=== PATIENT | male | born 1965 | race Two or more races ===

== ENCOUNTER 2022-05-13 17:56 | Emergency (ER) | payer SELFPAY ==
[~2022-05-13] VITALS: Ht 182.9 cm; Wt 79.4 kg
--- NOTE | 2022-05-13 18:12 | NUR ---
BIB [facility] 76, LAYING ON THE SIDEWALK,ETOH. THE PATIENT IS ALERT AND ORIENTED X2. DENIES PAIN. IN ROOM AIR AND DENIES SOB. RESPIRATION REGULAR AND UNLABORED. WILL CONTINUE TO MONITOR THE PATIENT.
[2022-05-14 04:15] VITALS: BP 121/66
--- NOTE | 2022-05-14 04:15 | NUR ---
Patient discharged to home in stable condition. Written and verbal after care instructions given. Patient verbalizes understanding of instruction.
== END 2022-05-14 04:16 | disposition home or self-care (01) ==
LOC: ER 18:22 → EDBD 18:22 → ER 05-14 04:16
DX: F10.129 Alcohol abuse with intoxication, unspecified (principal); Z98.890 Other specified postprocedural states; Z60.2 Problems related to living alone; Y90.9 Presence of alcohol in blood, level not specified

== ENCOUNTER 2022-06-18 12:01 | Emergency (ER) | payer MEDICAID ==
[~2022-06-18] VITALS: Ht 182.9 cm; Wt 77.1 kg
--- NOTE | 2022-06-18 12:10 | NUR ---
[id number] FROM THE STREET FOR ETOH. THE PATIENT IS ALERT AND ORIENTED X2. DENIES PAIN. IN ROOM AIR AND DENIES SOB. RESPIRATION REGULAR AND UNLABORED. THE PATIENT IS ATTACHED TO THE MONITOR. WILL CONTINUE TO MONITOR THE PATIENT.
--- NOTE | 2022-06-18 12:40 | NUR ---
URINE COLLECTED AND SENT TO LAB
[2022-06-18 12:42] LABS: BASOPHILS % (AUTO) 0.5 % (0.0-2.0); EOSINOPHILS % (AUTO) 2.9 % (0.0-6.0); HEMATOCRIT 43 % (39-51); HEMOGLOBIN 14.6 g/dL (13.5-17.5); LYMPHOCYTES # (AUTO) 2.1 K/uL (0.8-4.8); LYMPHOCYTES % (AUTO) 38.5 % (20.0-44.0); MEAN CORPUSCULAR HGB CONC 34 g/dl (31.0-36.0); MEAN CORPUSCULAR VOLUME 97 fL (80-96); MONOCYTES # (AUTO) 0.7 K/uL (0.1-1.30); MONOCYTES % (AUTO) 12.3 % (2.0-12.0); NEUTROPHILS # (AUTO) 2.5 K/uL (1.8-8.9); NEUTROPHILS % (AUTO) 45.8 % (43.0-81.0); PLATELET COUNT (AUTO) 140 K/uL (150-450); RED BLOOD CELL COUNT(AUTO) 4.44 MIL/uL (4.5-6.0); WHITE BLOOD COUNT (AUTO) 5.4 K/uL (4.3-11.0)
--- NOTE | 2022-06-18 12:44 | NUR ---
COVID ANTIGEN SWAB DONE AND SENT TO THE LAB
[2022-06-18 13:02] LABS: CALCIUM, SERUM 8.7 mg/dL (8.5-10.1); CREATININE 0.8 mg/dL (0.6-1.3); POTASSIUM 3.1 mmol/L (3.5-5.1)
[2022-06-18 13:09] LABS: ALBUMIN 3.1 g/dL (3.4-5.0); BILIRUBIN,DIRECT 0.5 mg/dL (0.0-0.2); BILIRUBIN,TOTAL 1.1 mg/dL (0.2-1.0); TOTAL PROTEIN, SERUM 7.5 g/dL (6.4-8.2)
[2022-06-18] MEDS ORDERED: POTASSIUM CHLORIDE 20 MEQ TAB.PRT.SR PO ONE ×2 (15:00→15:41)
--- NOTE | 2022-06-18 15:09 | NUR ---
The pt. is a 57 year old male who was BIBRA due to bizarre behavior and alcohol intoxication. SW met with pt. at bedside. Pt. is not compliant with interview. SW will follow up at a later time.
[2022-06-18] MEDS ORDERED: POTASSIUM CHLORIDE 10 MEQ TABLET.SA ONE (15:41)
[2022-06-18 16:46] VITALS: BP 131/78
--- NOTE | 2022-06-18 16:46 | NUR ---
Patient given written and verbal discharge instructions. Patient verbalizes understanding of instructions. Patient is ambulatory with steady gait. Refuses offer of long-term placement. Patient given list of available shelters in surrounding area.
== END 2022-06-18 16:47 | disposition home or self-care (01) ==
LOC: ER 15:18
DX: F10.129 Alcohol abuse with intoxication, unspecified (principal); Y90.8 Blood alcohol level of 240 mg/100 ml or more; E87.6 Hypokalemia; Z20.822 Contact with and (suspected) exposure to COVID-19; Z89.431 Acquired absence of right foot
CPT/HCPCS: 99283; 85025; 80048; 80076; 36415; 87426; 80143; 80320; 80307; C9803; G0480